=== PATIENT | female | born 1940 | race Two or more races ===

== ENCOUNTER 2018-03-04 21:16 | Inpatient (IN) | payer SELFPAY ==
[~2018-03-04] VITALS: Ht 165.1 cm; Wt 80.0 kg
--- NOTE | 2018-03-04 21:39 | PHYS DOC ---
Adult General Chief Complaint Chief Complaint: ABDOMINAL PAIN HPI HPI Patient is a 77 year old female who presents with RUQ pain and vomiting Patient has known gallstones for 2 years. She noted onset of RUQ pain with vomiting this morning at 1AM. She's had multiple episodes of vomiting throughout the day greater than 10 episodes, no blood or fevers. Patient last ate last night soup with eggs and fish. She has solitary kidney since Review of Systems Review of Systems Constitutional: Denies fever or chills Eyes: Denies change in visual acuity, redness, or eye pain HENT: Denies nasal congestion or sore throat Respiratory: Denies cough or shortness of breath Cardiovascular: Denies chest pain or palpitations GI: RUQ abdominal pain, nausea, vomiting, no bloody stools or diarrhea : Denies dysuria or hematuria Musculoskeletal: Denies back pain or joint pain Integument: Denies rash or skin lesions Neurologic: Denies headache, focal weakness or sensory changes Endocrine: Denies polyuria or polydipsia All other systems were reviewed and found to be within normal limits, except as documented in this note. Current Medications Current Medications Current Medications Medications (Trade) Dose Ordered Sig/Elaine Start Time Stop Time Status Last Admin Dose Admin Fentanyl Citrate (Fentanyl 2ml Vial) 50 mcg 1X ONCE 03/04/18 23:55 03/04/18 23:56 DC 03/04/18 23:59 50 MCG Piperacillin Sod/ Tazobactam Sod 3.375 gm/Sodium Chloride 50 ml @ 100 mls/hr 1X ONCE 03/04/18 23:55 03/05/18 00:24 DC 03/04/18 23:58 100 MLS/HR Allergies Allergies Physical Exam Physical Exam Constitutional: Well developed, well nourished, no acute distress, non-toxic appearance. HENT: Normocephalic, atraumatic, bilateral external ears normal, oropharynx moist, no oral exudates, nose normal. Eyes: PERRLA, EOMI, conjunctiva normal, no discharge. Neck: Normal range of motion, no tenderness, supple, no stridor. Cardiovascular:Heart rate regular rhythm, no murmur Lungs & Thorax: Bilateral breath sounds clear to auscultation Abdomen: Bowel sounds decreased, RUQ tenderness with guarding, no masses, no pulsatile masses. Skin: Warm, dry, no erythema, no rash. Back: No tenderness, no CVA tenderness. Extremities: No tenderness, no cyanosis, no clubbing, ROM intact, no edema. Neurologic: Alert and oriented X 3, normal motor function, normal sensory function, no focal deficits noted. Psychologic: Affect normal, judgement normal, mood normal. Current Patient Data Vital Signs Vital Signs Date Time Temp Pulse Resp B/P (MAP) Pulse Ox O2 Delivery O2 Flow Rate FiO2 03/05/18 01:00 71 18 144/70 (94) 94 03/04/18 21:26 97.7 Room Air 97.7 Lab Values Laboratory Tests Test 03/04/18 21:20 03/04/18 21:43 03/04/18 22:12 Urine Collection Type Unknown Urine Color Yellow Urine Clarity Clear Urine pH 7.5 Urine Specific [place] 1.020 Urine Protein 100 mg/dL (NEG-TRACE) Urine Glucose (UA) Negative mg/dL (NEG) Urine Ketones (Stick) Negative mg/dL (NEG) Urine Blood Negative (NEG) Urine Nitrite Negative (NEG) Urine Bilirubin Negative (NEG) Urine Urobilinogen Dipstick 1.0 mg/dL (0.2 mg/dL) Urine Leukocyte Esterase Negative (NEG) Urine RBC 3-5 /HPF (0-2) Urine WBC 1-4 /HPF (0-4) Urine Squamous Epithelial Cells Few /LPF Urine Bacteria 0 /HPF (0-FEW) White Blood Count 14.9 x10^3/uL (4.0-11.0) H Red Blood Count 4.46 x10^6/uL (3.50-5.40) Hemoglobin 13.9 g/dL (12.0-15.5) Hematocrit 40.4 % (36.0-47.0) Mean Corpuscular Volume 91 fL (79-100) Mean Corpuscular Hemoglobin 31 pg (25-35) Mean Corpuscular Hemoglobin Concent 34 g/dL (31-37) Red Cell Distribution Width 13.7 % (11.5-14.5) Platelet Count 231 x10^3/uL (140-400) Neutrophils (%) (Auto) 91 % (31-73) H Lymphocytes (%) (Auto) 4 % (24-48) L Monocytes (%) (Auto) 5 % (0-9) Eosinophils (%) (Auto) 0 % (0-3) Basophils (%) (Auto) 0 % (0-3) Neutrophils # (Auto) 13.5 x10^3uL (1.8-7.7) H Lymphocytes # (Auto) 0.6 x10^3/uL (1.0-4.8) L Monocytes # (Auto) 0.7 x10^3/uL (0.0-1.1) Eosinophils # (Auto) 0.0 x10^3/uL (0.0-0.7) Basophils # (Auto) 0.0 x10^3/uL (0.0-0.2) Segmented Neutrophils % 91 % (35-66) H Band Neutrophils % 5 % (0-9) Lymphocytes % 2 % (24-48) L Monocytes % 2 % (0-10) Platelet Estimate Adequate (ADEQUATE) Sodium Level 137 mmol/L (136-145) Potassium Level 4.3 mmol/L (3.5-5.1) Chloride Level 98 mmol/L (98-107) Carbon Dioxide Level 30 mmol/L (21-32) Anion Gap 9 (6-14) Blood Urea Nitrogen 17 mg/dL (7-20) Creatinine 1.1 mg/dL (0.6-1.0) H Estimated GFR (Cockcroft-Gault) 48.4 BUN/Creatinine Ratio 15 (6-20) Glucose Level 171 mg/dL (70-99) H Calcium Level 9.5 mg/dL (8.5-10.1) Total Bilirubin 1.1 mg/dL (0.2-1.0) H Aspartate Amino Transferase (AST) 23 U/L (15-37) Alanine Aminotransferase (ALT) 21 U/L (14-59) Alkaline Phosphatase 108 U/L (46-116) Troponin I Quantitative < 0.017 ng/mL (0.000-0.055) Total Protein 8.8 g/dL (6.4-8.2) H Albumin 3.6 g/dL (3.4-5.0) Albumin/Globulin Ratio 0.7 (1.0-1.7) L Lipase 157 U/L (73-393) Lactic Acid Level 2.4 mmol/L (0.4-2.0) H Laboratory Tests 03/04/18 21:43 Laboratory Tests 03/04/18 21:43 EKG EKG ECG 22:00 SB @ [address]-T wave changes Radiology/Procedures Radiology/Procedures [facility] [address] [place] [address] IMAGING REPORT Signed PATIENT: GLENN DEJESUS ACCOUNT: [id number] : 1940 LOCATION: ER AGE: 77 SEX: F EXAM STATUS: REG ER ORD. PHYSICIAN: KETTY RIZVI MD REASON: RUQ pain PROCEDURE: ABDOMEN LTD Exam performed: Single view chest, single view abdomen KUB and Limited right upper quadrant ultrasound. HISTORY: Right upper quadrant abdominal pain. DATE OF SERVICE: 03/04/2018. COMPARISON: None. Single AP view chest findings: Cardiomegaly with mild Central vascular congestion. Atheromatous calcification of the aortic knob. Prominent interstitial markings lungs are normal. Chronic. There are perhaps airspace opacities in both lower lobes. No pleural effusion or pneumothorax seen. Bones are normal. IMPRESSION: Cardiomegaly with Central vascular congestion. Prominent interstitial markings and some airspace opacities are seen in both lungs, which are chronic, however correlate clinically to rule out possibility of low-grade interstitial edema versus infiltrates. End impression. Single view abdomen KUB findings: Nonspecific, nondistended bowel loops are seen. There is scattered air and stool throughout the colon. No abnormal calcification. Spondylotic changes. IMPRESSION: Scattered stool throughout the colon suggesting constipation. No additional abnormality seen. End impression. Limited right upper quadrant ultrasound findings: Liver is normal in size and echogenicity and measures 14.7 cm in length. Cholelithiasis with gallbladder sludge. There is pericholecystic fluid and positive sonographic Ly's sign. The common bile duct appears mildly dilated at 6.5 mm. Right kidney measures 9.7 x 4.5 x 4.3 cm. There is no hydronephrosis or nephrolithiasis. Suboptimal evaluation of the pancreas due to overlying bowel gas. The visualized IVC appears normal. No free fluid. IMPRESSION: Cholelithiasis with sonographic findings consistent with acute cholecystitis. Presence of mildly dilated common bile duct raises question for choledocholithiasis which is not seen on this exam. If further evaluation is warranted, ERCP or MRCP may be of additional benefit. Electronically signed by: Debra Zuleta MD (03/04/2018 11:27 PM) [facility] DICTATED and SIGNED BY: DEBRA ZULETA MD DATE: 03/04/18 232 [facility] [address] [place] [address] IMAGING REPORT Signed PATIENT: GLENN DEJESUS ACCOUNT: [id number] : 1940 LOCATION: ER AGE: 77 SEX: F EXAM STATUS: REG ER ORD. PHYSICIAN: KETTY RIZVI MD REASON: abdominal pain PROCEDURE: CHEST AP ONLY Exam performed: Single view chest, single view abdomen KUB and Limited right upper quadrant ultrasound. HISTORY: Right upper quadrant abdominal pain. DATE OF SERVICE: 03/04/2018. COMPARISON: None. Single AP view chest findings: Cardiomegaly with mild Central vascular congestion. Atheromatous calcification of the aortic knob. Prominent interstitial markings lungs are normal. Chronic. There are perhaps airspace opacities in both lower lobes. No pleural effusion or pneumothorax seen. Bones are normal. IMPRESSION: Cardiomegaly with Central vascular congestion. Prominent interstitial markings and some airspace opacities are seen in both lungs, which are chronic, however correlate clinically to rule out possibility of low-grade interstitial edema versus infiltrates. End impression. Single view abdomen KUB findings: Nonspecific, nondistended bowel loops are seen. There is scattered air and stool throughout the colon. No abnormal calcification. Spondylotic changes. IMPRESSION: Scattered stool throughout the colon suggesting constipation. No additional abnormality seen. End impression. Limited right upper quadrant ultrasound findings: Liver is normal in size and echogenicity and measures 14.7 cm in length. Cholelithiasis with gallbladder sludge. There is pericholecystic fluid and positive sonographic Ly's sign. The common bile duct appears mildly dilated at 6.5 mm. Right kidney measures 9.7 x 4.5 x 4.3 cm. There is no hydronephrosis or nephrolithiasis. Suboptimal evaluation of the pancreas due to overlying bowel gas. The visualized IVC appears normal. No free fluid. IMPRESSION: Cholelithiasis with sonographic findings consistent with acute cholecystitis. Presence of mildly dilated common bile duct raises question for choledocholithiasis which is not seen on this exam. If further evaluation is warranted, ERCP or MRCP may be of additional benefit. Electronically signed by: Debra Zuleta MD (03/04/2018 11:27 PM) [facility] DICTATED and SIGNED BY: DEBRA ZULETA MD DATE: 03/04/18 1714 Course & Med Decision Making Course & Med Decision Making Pertinent Labs and Imaging studies reviewed. (See chart for details) Emergency Department course Patient presents with RUQ pain and vomiting DDx- Biliary colic, Cholecystis, obstruction, pancreatitis The patient was stable in the ED. ECG and troponin shoed no evidence of ACS. Labs were remarkable for leukocytosis, GB ultrasound showed cholecystitis. Patient was given Zosyn IV. Lactate elevated. blood culture sent. Patient was given IV NS hydration. CXR showed cardiomegaly with pulmonary vascular congestion. KUB showed constipation. 00:[address] Genao who recommends admission to hospitalist. Patient admitted to hospitalist. 06:[address] Kowalski who agreed with admission. Dragon Disclaimer Dragon Disclaimer This electronic medical record was generated, in whole or in part, using a voice recognition dictation system. Departure Departure Impression: Primary Impression: Acute cholecystitis Disposition: ADMITTED INPATIENT Admitting Physician: Other (Shi Kowalski MD) Condition: STABLE Scripts Hydrocodone Bit/Acetaminophen (HYDROCODONE-APAP 5-325 ) 1 Each Tablet 1 TAB PO PRN Q4HRS PRN for MILD PAIN, #30 TAB 0 Refills Prov: SHAKIR BRASWELL [employer] 03/06/18 KETTY RIZVI MD Mar 04, 2018 21:39
[2018-03-04 21:47] LABS: BILIRUBIN,URINE NEGATIVE (NEG); CLARITY,URINE CLEAR; COLOR,URINE YELLOW; NITRITE,URINE NEGATIVE (NEG); PH,URINE 7.5; PROTEIN,URINE 100 mg/dL (NEG-TRACE)
[2018-03-04 21:55] LABS: BACTERIA,URINE 0 /HPF (0-FEW); SQUAMOUS EPITHELIAL CELL,UR FEW /LPF
[2018-03-04 21:58] LABS: BASO % 0 % (0-3); EOS % 0 % (0-3); HEMATOCRIT 40.4 % (36.0-47.0); HEMOGLOBIN 13.9 g/dL (12.0-15.5); LYMPH # 0.6 x10^3/uL (1.0-4.8); LYMPH % 4 % (24-48); MEAN CORPUSCULAR HEMOGLOBIN 31 pg (25-35); MEAN CORPUSCULAR HGB CONC 34 g/dL (31-37); MEAN CORPUSCULAR VOLUME 91 fL (79-100); MONO # 0.7 x10^3/uL (0.0-1.1); MONO % 5 % (0-9); NEUT # 13.5 x10^3uL (1.8-7.7); NEUT % 91 % (31-73); PLATELET COUNT 231 x10^3/uL (140-400); RED BLOOD COUNT 4.46 x10^6/uL (3.50-5.40); RED CELL DISTRIBUTION WIDTH 13.7 % (11.5-14.5); WHITE BLOOD COUNT 14.9 x10^3/uL (4.0-11.0)
[2018-03-04 22:08] LABS: CALCIUM 9.5 mg/dL (8.5-10.1); CREATININE 1.1 mg/dL (0.6-1.0); GFR 48.4; POTASSIUM 4.3 mmol/L (3.5-5.1)
[2018-03-04 22:14] LABS: ALBUMIN 3.6 g/dL (3.4-5.0); ALBUMIN/GLOBULIN RATIO 0.7 (1.0-1.7); TOTAL BILIRUBIN 1.1 mg/dL (0.2-1.0); TOTAL PROTEIN 8.8 g/dL (6.4-8.2)
[2018-03-04 22:15] LABS: % BANDS 5 % (0-9); % LYMPHS 2 % (24-48); % MONOS 2 % (0-10); % SEGS 91 % (35-66); PLT ESTIMATE ADEQUATE (ADEQUATE)
--- NOTE | 2018-03-04 23:31 | RAD ---
Exam performed: Single view chest, single view abdomen KUB and Limited right upper quadrant ultrasound. HISTORY: Right upper quadrant abdominal pain. DATE OF SERVICE: 03/04/2018. COMPARISON: None. Single AP view chest findings: Cardiomegaly with mild Central vascular congestion. Atheromatous calcification of the aortic knob. Prominent interstitial markings lungs are normal. Chronic. There are perhaps airspace opacities in both lower lobes. No pleural effusion or pneumothorax seen. Bones are normal. IMPRESSION: Cardiomegaly with Central vascular congestion. Prominent interstitial markings and some airspace opacities are seen in both lungs, which are chronic, however correlate clinically to rule out possibility of low-grade interstitial edema versus infiltrates. End impression. Single view abdomen KUB findings: Nonspecific, nondistended bowel loops are seen. There is scattered air and stool throughout the colon. No abnormal calcification. Spondylotic changes. IMPRESSION: Scattered stool throughout the colon suggesting constipation. No additional abnormality seen. End impression. Limited right upper quadrant ultrasound findings: Liver is normal in size and echogenicity and measures 14.7 cm in length. Cholelithiasis with gallbladder sludge. There is pericholecystic fluid and positive sonographic Ly's sign. The common bile duct appears mildly dilated at 6.5 mm. Right kidney measures 9.7 x 4.5 x 4.3 cm. There is no hydronephrosis or nephrolithiasis. Suboptimal evaluation of the pancreas due to overlying bowel gas. The visualized IVC appears normal. No free fluid. IMPRESSION: Cholelithiasis with sonographic findings consistent with acute cholecystitis. Presence of mildly dilated common bile duct raises question for choledocholithiasis which is not seen on this exam. If further evaluation is warranted, ERCP or MRCP may be of additional benefit. Electronically signed by: Debra Zuleta MD (03/04/2018 11:27 PM) [facility]
[2018-03-04] MEDS ORDERED: fentaNYL PF VIAL 100 MCG/2 ML VIAL IV ONE (23:55)
[2018-03-04] MEDS ORDERED: PIPERACILLIN/TAZOBACTAM 3.375 GM in IV NORMAL SALINE 50ML 50 ML IV ONE (23:55)
[2018-03-05] VITALS (13 sets, daily range): BP systolic 133–162; BP diastolic 69–78
[2018-03-05] MEDS: IV NORMAL SALINE 1000ML BAG 1,000 ML IV SCH ×6 (01:15→23:45)
[2018-03-05] MEDS ORDERED: FLUT1DIS IH (03:33)
[2018-03-05] MEDS ORDERED: RANI150T21 PO (03:33)
[2018-03-05] MEDS ORDERED: FLUT9.9S NS (03:33)
[2018-03-05] MEDS ORDERED: ASPI-612 PO (03:33)
[2018-03-05] MEDS ORDERED: LOSA50TA2 PO (03:33)
[2018-03-05] MEDS ORDERED: ACET325T9 PO (03:33)
[2018-03-05] MEDS ORDERED: CETI10TA22 PO (03:33)
[2018-03-05] MEDS ORDERED: PROAIR RESPICL90 MCG IH (03:33)
[2018-03-05] MEDS ORDERED: MELO7.5T5 PO (03:33)
[2018-03-05] MEDS ORDERED: MORPHINE SULFATE 4 MG/ML VIAL. IV PRN (03:45)
[2018-03-05] MEDS: MORPHINE SULFATE 2 MG/ML VIAL. IV PRN ×2 (03:58→07:11)
[2018-03-05] MEDS ORDERED: INFLUENZA VAX SCREEN BY RX. MC PRN (04:00)
--- NOTE | 2018-03-05 06:18 | EKG ---
[facility] [address] [place] [address] Test Date: 2018-03-04 Test Time: 21:53:17 Pat Name: GLENN DEJESUS Department: Room: 400 1 Gender: F [employer]: : 1940 Requested By: KETTY RIZVI Order Number: [id number] Reading MD: Mike Nguyen Measurements Intervals [place] Rate: 57 P: 38 MS: 148 QRS: -16 QRSD: 92 T: 5 QT: 402 QTc: 394 Interpretive Statements SINUS RHYTHM LEFTWARD AXIS QRS(T) CONTOUR ABNORMALITY CONSIDER ANTEROSEPTAL MYOCARDIAL DAMAGE NONSPECIFIC ST-T WAVE CHANGES. POSSIBLY ABNORMAL ECG RI6.01 No previous ECG available for comparison Electronically Signed On 03-05-2018 15:28:23 CDT by Mike Nguyen
[2018-03-05] MEDS: ONDANSETRON PF 4 MG/2 ML VIAL. IV PRN (07:10)
[2018-03-05] MEDS ORDERED: HEPARIN 1,000 UNIT in IV NORMAL SALINE 1,000 ML for SURG PERIOP IRR ONE (09:00)
[2018-03-05] MEDS ORDERED: BUPIVACAINE-EPI 0.5%-1:200000 50 ML VIAL. ONE (09:15)
[2018-03-05] MEDS ORDERED: SURGICEL HEMOSTAT 2X3 EACH. ONE (09:16)
[2018-03-05] MEDS ORDERED: BISACODYL 10 MG SUPP.RECT. ONE (09:16)
[2018-03-05] MEDS ORDERED: IOHEXOL 300 MG/ML 100ML VIAL. ONE (09:16)
[2018-03-05] MEDS ORDERED: HYDROmorphone 2 MG/ML VIAL IV PRN (10:15)
[2018-03-05] MEDS ORDERED: ONDANSETRON PF 4 MG/2 ML VIAL. IV PRN ×2 (10:15→12:30)
[2018-03-05] MEDS ORDERED: IV RINGERS,LACTATED 1000ML 1,000 ML IV SCH (10:15)
[2018-03-05] MEDS ORDERED: LIDOCAINE 1% PF 2 ML VIAL. ID PRN (10:15)
[2018-03-05] MEDS ORDERED: PROCHLORPERAZINE 10 MG/2 ML VIAL. IV PRN (10:15)
[2018-03-05] MEDS ORDERED: fentaNYL PF VIAL 100 MCG/2 ML VIAL IV PRN ×2 (10:15)
[2018-03-05] MEDS ORDERED: MORPHINE SULFATE 2 MG/ML VIAL. IV PRN (10:15)
[2018-03-05] MEDS ORDERED: fentaNYL PF VIAL 100 MCG/2 ML VIAL ONE ×2 (10:21→10:32)
--- NOTE | 2018-03-05 10:24 | PDOC2 ---
CONSULT Date of Consult Date of Consult DATE: 03/05/18 TIME: 10:17 Reason for Consult Reason for Consult: Calculous cholecystitis Referring Physician Referring Physician: Kwasi Identification/Chief Complaint Chief Complaint RUQ pain Source Source: Caregiver, Chart review, Patient History of Present Illness Reason for Visit: 77 yo F with c/o RUQ and N/V. Pain began early this AM and worsened. N/V. Took ibuprofen for pain without effect. Known history of gallstones for 2 years. Past Medical History Past Medical History congenital absence left kidney Cardiovascular: HTN Pulmonary: Asthma Past Surgical History Past Surgical History: Other (unknown previous vaginal surgery) Family History Family History: No Significant Social History No ALCOHOL: none Lives: with Family Current Problem List Problem List Problems Medical Problems: (1) Acute cholecystitis Status: Acute Current Medications Current Medications Current Medications Piperacillin Sod/ Tazobactam Sod 3.375 gm/Sodium Chloride 50 ml @ 100 mls/hr 1X ONCE IV Last administered on 03/04/18at 23:58; Start 03/04/18 at 23:55; Stop 03/05/18 at 00:24; Status DC Fentanyl Citrate (Fentanyl 2ml Vial) 50 mcg 1X ONCE IV Last administered on at 23:59; Start 03/04/18 at 23:55; Stop 03/04/18 at 23:56; Status DC Sodium Chloride 1,000 ml @ 2,370 mls/hr Q26M IV Last administered on at 01:15; Start 03/05/18 at 01:15; Stop 03/05/18 at 02:15; Status DC Influenza Virus Vaccine (Afluria Trivalent [id number] Syringe) 0.5 ml ONCE ONCE VAX IM ; Start 03/05/18 at 09:00; Stop 03/05/18 at 09:01; Status DC Morphine Sulfate (Morphine Sulfate) 4 mg PRN Q2HR PRN IV PAIN; Start 03/05/18 at 03:45 Morphine Sulfate (Morphine Sulfate) 2 mg PRN Q2HR PRN IV PAIN Last administered on 03/05/18at 07:11; Start 03/05/18 at 03:45 Ondansetron HCl (Zofran) 4 mg PRN Q4HRS PRN IV NAUSEA/VOMITING Last administered on 03/05/18at 07:10; Start 03/05/18 at 03:45 Sodium Chloride 1,000 ml @ 100 mls/hr Q10H IV Last administered on 03/05/18at 03:59; Start 03/05/18 at 03:45 Info (FLU VACCINE SCREEN per RX) 1 each PRN 1X PRN MC SEE COMMENTS; Start 03/05 at 04:00; Status Cancel Heparin Sodium (Porcine) 1000 unit/Sodium Chloride 1,001 ml @ 1,001 mls/hr 1X ONCE IRR ; Start 03/05/18 at 09:00; Stop 03/05/18 at 09:59; Status DC Ondansetron HCl (Zofran) 4 mg PRN Q6HRS PRN IV NAUSEA/VOMITING; Start 03/05/18 at 10:15; Stop 03/06/18 at 10:14 Fentanyl Citrate (Fentanyl 2ml Vial) 25 mcg PRN Q5MIN PRN IV MILD PAIN; Start 03/05/18 at 10:15; Stop 03/06/18 at 10:14 Fentanyl Citrate (Fentanyl 2ml Vial) 50 mcg PRN Q5MIN PRN IV MODERATE TO SEVERE PAIN; Start 03/05/18 at 10:15; Stop 03/06/18 at 10:14 Morphine Sulfate (Morphine Sulfate) 1 mg PRN Q10MIN PRN IV SEVERE PAIN; Start 03/05/18 at 10:15; Stop 03/06/18 at 10:14 Ringer's Solution 1,000 ml @ 30 mls/hr Q24H IV ; Start 03/05/18 at 10:15; Stop 03/05/18 at 22:14 Lidocaine HCl (Xylocaine-Mpf 1% 2ml Vial) 2 ml 1X PRN PRN ID IV START; Start at 10:15; Stop 03/06/18 at 10:14 Hydromorphone HCl (Dilaudid) 0.5 mg PRN Q10MIN PRN IV SEV PAIN, Second choice; Start 03/05/18 at 10:15; Stop 03/06/18 at 10:14 Prochlorperazine Edisylate (Compazine) 5 mg PACU PRN PRN IV NAUSEA, MRX1; Start 03/05/18 at 10:15; Stop 03/06/18 at 10:14 Bupivacaine HCl/ Epinephrine Bitart (Marcaine-Epi 0.5%-1:[id number]) 50 ml STK-MED ONCE .ROUTE ; Start 03/05/18 at 09:15; Stop 03/05/18 at 10:17; Status DC Cellulose (Surgicel Hemostat 2x3) 1 each STK-MED ONCE .ROUTE ; Start 03/05/18 at 09:16; Stop 03/05/18 at 10:17; Status DC Cefazolin Sodium/ Dextrose 50 ml @ As Directed STK-MED ONCE IV ; Start 03/05/18 at 10:16; Stop 03/05/18 at 10:17; Status DC Iohexol (Omnipaque 300 Mg/ml) 100 ml STK-MED ONCE .ROUTE ; Start 03/05/18 at 09: 16; Stop 03/05/18 at 10:17; Status DC Bisacodyl (Dulcolax Supp) 10 mg STK-MED ONCE .ROUTE ; Start 03/05/18 at 09:16; Stop 03/05/18 at 10:17; Status DC Active Scripts Active Reported Zantac (Ranitidine Hcl) 150 Mg Tablet 1 Tab PO BID Mobic (Meloxicam) 7.5 Mg Tablet 1 Tab PO DAILY Cozaar (Losartan Potassium) 50 Mg Tablet 50 Mg PO DAILY Advair 100-50 Diskus (Fluticasone/Salmeterol) 1 Each Disk.w.dev 1 Puff IH BID Flonase Allergy Relief (Fluticasone Propionate) 9.9 Ml Marcus.susp 2 Sprays NS DAILY Zyrtec (Cetirizine Hcl) 10 Mg Tablet 1 Tab PO DAILY Aspirin Ec (Aspirin) 81 Mg Tablet.dr 1 Tab PO DAILY Proair Respiclick (Albuterol Sulfate) 90 Mcg Aer.pow.ba 2 Puff IH PRN Q6HRS PRN Tylenol (Acetaminophen) 325 Mg Tablet 500 Mg PO PRN Q6HRS PRN Allergies Allergies: Coded Allergies: hydrochlorothiazide (Verified Allergy, Unknown, 03/04/18) lisinopril (Verified Allergy, Unknown, 03/04/18) sulfamethoxazole (Verified Allergy, Unknown, 03/04/18) trimethoprim (Verified Allergy, Unknown, 03/04/18) ROS Gastrointestinal: Yes Nausea, Yes Vomiting, Yes Abdominal Pain Physical Exam General: Alert, Oriented X3, Cooperative, mild distress HEENT: Atraumatic Lungs: Normal air movement Abdomen: Soft, Other (TTP RUQ) Extremities: No clubbing, No cyanosis Skin: No rashes, No breakdown Neuro: Normal speech, Sensation intact Psych/Mental Status: Mental status NL, Mood NL Vitals VITALS Vital Signs Date Time Temp Pulse Resp B/P (MAP) Pulse Ox O2 Delivery O2 Flow Rate FiO2 03/05/18 07:45 96 Nasal Cannula 2.0 03/05/18 07:00 99.7 63 18 142/72 (95) 99.7 Labs Labs Laboratory Tests Test 03/04/18 21:20 03/04/18 21:43 03/04/18 22:12 03/05/18 04:40 Urine Collection Type Unknown Urine Color Yellow Urine Clarity Clear Urine pH 7.5 Urine Specific [place] 1.020 Urine Protein 100 mg/dL (NEG-TRACE) Urine Glucose (UA) Negative mg/dL (NEG) Urine Ketones (Stick) Negative mg/dL (NEG) Urine Blood Negative (NEG) Urine Nitrite Negative (NEG) Urine Bilirubin Negative (NEG) Urine Urobilinogen Dipstick 1.0 mg/dL (0.2 mg/dL) Urine Leukocyte Esterase Negative (NEG) Urine RBC 3-5 /HPF (0-2) Urine WBC 1-4 /HPF (0-4) Urine Squamous Epithelial Cells Few /LPF Urine Bacteria 0 /HPF (0-FEW) White Blood Count 14.9 x10^3/uL (4.0-11.0) Red Blood Count 4.46 x10^6/uL (3.50-5.40) Hemoglobin 13.9 g/dL (12.0-15.5) Hematocrit 40.4 % (36.0-47.0) Mean Corpuscular Volume 91 fL (79-100) Mean Corpuscular Hemoglobin 31 pg (25-35) Mean Corpuscular Hemoglobin Concent 34 g/dL (31-37) Red Cell Distribution Width 13.7 % (11.5-14.5) Platelet Count 231 x10^3/uL (140-400) Neutrophils (%) (Auto) 91 % (31-73) Lymphocytes (%) (Auto) 4 % (24-48) Monocytes (%) (Auto) 5 % (0-9) Eosinophils (%) (Auto) 0 % (0-3) Basophils (%) (Auto) 0 % (0-3) Neutrophils # (Auto) 13.5 x10^3uL (1.8-7.7) Lymphocytes # (Auto) 0.6 x10^3/uL (1.0-4.8) Monocytes # (Auto) 0.7 x10^3/uL (0.0-1.1) Eosinophils # (Auto) 0.0 x10^3/uL (0.0-0.7) Basophils # (Auto) 0.0 x10^3/uL (0.0-0.2) Segmented Neutrophils % 91 % (35-66) Band Neutrophils % 5 % (0-9) Lymphocytes % 2 % (24-48) Monocytes % 2 % (0-10) Platelet Estimate Adequate (ADEQUATE) Sodium Level 137 mmol/L (136-145) Potassium Level 4.3 mmol/L (3.5-5.1) Chloride Level 98 mmol/L (98-107) Carbon Dioxide Level 30 mmol/L (21-32) Anion Gap 9 (6-14) Blood Urea Nitrogen 17 mg/dL (7-20) Creatinine 1.1 mg/dL (0.6-1.0) Estimated GFR (Cockcroft-Gault) 48.4 BUN/Creatinine Ratio 15 (6-20) Glucose Level 171 mg/dL (70-99) Calcium Level 9.5 mg/dL (8.5-10.1) Total Bilirubin 1.1 mg/dL (0.2-1.0) Aspartate Amino Transf (AST/SGOT) 23 U/L (15-37) Alanine Aminotransferase (ALT/SGPT) 21 U/L (14-59) Alkaline Phosphatase 108 U/L (46-116) Troponin I Quantitative < 0.017 ng/mL (0.000-0.055) Total Protein 8.8 g/dL (6.4-8.2) Albumin 3.6 g/dL (3.4-5.0) Albumin/Globulin Ratio 0.7 (1.0-1.7) Lipase 157 U/L (73-393) Lactic Acid Level 2.4 mmol/L (0.4-2.0) 1.7 mmol/L (0.4-2.0) Laboratory Tests Test 03/04/18 21:20 03/04/18 21:43 03/04/18 22:12 03/05/18 04:40 Urine Collection Type Unknown Urine Color Yellow Urine Clarity Clear Urine pH 7.5 Urine Specific [place] 1.020 Urine Protein 100 mg/dL (NEG-TRACE) Urine Glucose (UA) Negative mg/dL (NEG) Urine Ketones (Stick) Negative mg/dL (NEG) Urine Blood Negative (NEG) Urine Nitrite Negative (NEG) Urine Bilirubin Negative (NEG) Urine Urobilinogen Dipstick 1.0 mg/dL (0.2 mg/dL) Urine Leukocyte Esterase Negative (NEG) Urine RBC 3-5 /HPF (0-2) Urine WBC 1-4 /HPF (0-4) Urine Squamous Epithelial Cells Few /LPF Urine Bacteria 0 /HPF (0-FEW) White Blood Count 14.9 x10^3/uL (4.0-11.0) Red Blood Count 4.46 x10^6/uL (3.50-5.40) Hemoglobin 13.9 g/dL (12.0-15.5) Hematocrit 40.4 % (36.0-47.0) Mean Corpuscular Volume 91 fL (79-100) Mean Corpuscular Hemoglobin 31 pg (25-35) Mean Corpuscular Hemoglobin Concent 34 g/dL (31-37) Red Cell Distribution Width 13.7 % (11.5-14.5) Platelet Count 231 x10^3/uL (140-400) Neutrophils (%) (Auto) 91 % (31-73) Lymphocytes (%) (Auto) 4 % (24-48) Monocytes (%) (Auto) 5 % (0-9) Eosinophils (%) (Auto) 0 % (0-3) Basophils (%) (Auto) 0 % (0-3) Neutrophils # (Auto) 13.5 x10^3uL (1.8-7.7) Lymphocytes # (Auto) 0.6 x10^3/uL (1.0-4.8) Monocytes # (Auto) 0.7 x10^3/uL (0.0-1.1) Eosinophils # (Auto) 0.0 x10^3/uL (0.0-0.7) Basophils # (Auto) 0.0 x10^3/uL (0.0-0.2) Segmented Neutrophils % 91 % (35-66) Band Neutrophils % 5 % (0-9) Lymphocytes % 2 % (24-48) Monocytes % 2 % (0-10) Platelet Estimate Adequate (ADEQUATE) Sodium Level 137 mmol/L (136-145) Potassium Level 4.3 mmol/L (3.5-5.1) Chloride Level 98 mmol/L (98-107) Carbon Dioxide Level 30 mmol/L (21-32) Anion Gap 9 (6-14) Blood Urea Nitrogen 17 mg/dL (7-20) Creatinine 1.1 mg/dL (0.6-1.0) Estimated GFR (Cockcroft-Gault) 48.4 BUN/Creatinine Ratio 15 (6-20) Glucose Level 171 mg/dL (70-99) Calcium Level 9.5 mg/dL (8.5-10.1) Total Bilirubin 1.1 mg/dL (0.2-1.0) Aspartate Amino Transf (AST/SGOT) 23 U/L (15-37) Alanine Aminotransferase (ALT/SGPT) 21 U/L (14-59) Alkaline Phosphatase 108 U/L (46-116) Troponin I Quantitative < 0.017 ng/mL (0.000-0.055) Total Protein 8.8 g/dL (6.4-8.2) Albumin 3.6 g/dL (3.4-5.0) Albumin/Globulin Ratio 0.7 (1.0-1.7) Lipase 157 U/L (73-393) Lactic Acid Level 2.4 mmol/L (0.4-2.0) 1.7 mmol/L (0.4-2.0) Images Images US c/w calculous cholecystitis Assessment/Plan Assessment/Plan Calculous cholecystitis TO OR for laparoscopic versus open cholecystectomy with cholangiogram R/R/B/A d/w pt and pt's supportive family. Risks, including, but not limited to : bleeding, infection, damage to surrounding structures, risk of anesthesia, risk of open. They appear to understand, their questions are answered and they elect to proceed. Thanks for consult! CLARISA SALGADO MD Mar 05, 2018 10:24
[2018-03-05] MEDS ORDERED: fentaNYL PF VIAL 100 MCG/2 ML VIAL IV ONE (10:30)
[2018-03-05] MEDS ORDERED: ROCURONIUM 50 MG/5 ML VIAL. ONE (10:32)
--- NOTE | 2018-03-05 12:05 | RAD ---
OPERATIVE CHOLANGIOGRAM: History: Laparoscopic cholecystectomy Procedure: A total of 2 fluoroscopic images were obtained of the right upper quadrant. Cystic duct was cannulated by the surgeon. Total fluoroscopic time was 17.5 seconds. Findings: There is opacification of the intrahepatic and extrahepatic biliary ducts. No filling defect to suggest choledocholithiasis is identified. Contrast material is able to transit to the duodenal sweep. Impression: No evidence of choledocholithiasis. Electronically signed by: Emir Banegas MD (03/05/2018 12:01 PM) [place] [id number]
[2018-03-05] MEDS ORDERED: ONDANSETRON PF 4 MG/2 ML VIAL. ONE (12:06)
[2018-03-05] MEDS ORDERED: NEOSTIGMINE METHYLSULFATE 5 MG/5 ML SYRINGE. ONE (12:06)
[2018-03-05] MEDS ORDERED: GLYCOPYRROLATE 1 MG/5 ML VIAL. ONE (12:06)
[2018-03-05] MEDS ORDERED: PROPOFOL 20 ML IV ONE (12:06)
[2018-03-05] MEDS ORDERED: DEXAMETHASONE SOD PHOS 20 MG/5 ML VIAL. ONE (12:07)
[2018-03-05] MEDS ORDERED: SEVOFLURANE 61 TO 120 MINUTES. IH ONE (12:07)
[2018-03-05] MEDS: IV RINGERS,LACTATED 1000ML 1,000 ML IV SCH ×2 (12:19→21:10)
[2018-03-05] MEDS ORDERED: 0.9 % SODIUM CHLORIDE 10 ML DISP.SYRIN. IV PRN (12:30)
[2018-03-05] MEDS ORDERED: DEXTROSE 50% 25 GM / 50ML DISP.SYRIN. IV PRN (12:30)
[2018-03-05] MEDS ORDERED: KETOROLAC 15 MG/ML VIAL. IV PRN (12:30)
--- NOTE | 2018-03-05 12:34 | PDOC4 ---
OPERATIVE NOTE Date: Date: Mar 05, 2018 Pre-Op Diagnosis: Calculous cholecystitis Post-Op Diagnosis: same Procedure Performed: Laparoscopic cholecystectomy with cholangiogram Surgeon: Ravinder Salgado Anesthesia Type: GETA plus local Blood Loss: 50 Specimans Obtained: gallbladder Findings: Necrotic portions of distended gallbladder with large amount of thickened bile aspirated, normal cholangiogram, purulent material noted in gallbladder wall Complications: none Operative Note: After obtaining informed consent, patient was taken to OR, induced under GETA and prepped in the usual fashion. Well healed incision in lower abdominal wall. 5 mm port placed umbilical and RUQ, 12 port placed epigastric, all under laparoscopic guidance. Abdominal cavity explored and otherwise unremarkable, except for obesity. Gallbladder noted to have extensive inflammation. Omentum adherent and bluntly taken down. Gallbladder distended and necrotic portions of the wall. Dark thickened bile aspirated off. Critical view obtained. Cystic artery ligated, which was just off a prominent right hepatic artery, which was uninjured. Cholangiogram obtained via cystic duct which was normal. Cystic duct ligated with hemolok and regular clips. Gallbladder taken off fossa sharply using cautery, placed in bag, delivered and sent to pathology for evaluation. Copious irrigation. No evidence of bleeding or other pathology noted. 19 EDENILSON drain placed in RUQ and fossa, secured with 3 0 nylon. Ports removed without bleeding. Fascia repaired with 0 vicryl. Skin repaired with 4 0 monocryl. Dressing placed. All counts correct. No immediate complications. Wound class is dirty, level 4. Patient tolerated procedure well and sent to PACU in stable condition. CLARISA SALGADO MD Mar 05, 2018 12:34
[2018-03-05] MEDS ORDERED: ALBUTEROL SULFATE 2.5 MG/3 ML NEBU. ONE (12:40)
[2018-03-05] MEDS ORDERED: ALBUTEROL SULFATE 2.5 MG/3 ML NEBU. NEB PRN (13:00)
[2018-03-05] MEDS: ENOXAPARIN 40 MG/0.4 ML SYRINGE. SQ SCH (13:00)
[2018-03-05] MEDS: DOCUSATE SODIUM 100 MG CAPSULE. PO SCH ×2 (13:00→21:09)
[2018-03-05] MEDS: HYDROcodone/APAP 5/325MG 1 TAB TABLET PO PRN ×2 (14:04→21:09)
--- NOTE | 2018-03-05 15:20 | HP ---
ADMIT DATE: 03/05/2018 CHIEF COMPLAINT: Abdominal pain. HISTORY OF PRESENT ILLNESS: The patient is a pleasant 77-year-old female who presented with right upper quadrant pain. She has associated nausea and vomiting, it has been occurring for several days. While she was in the ER, we did ultrasound, which confirmed gallstones. She has now been taken emergently to the OR and underwent a laparoscopic cholecystectomy. She is being examined in the medical floor room, 400, postoperatively. PAST MEDICAL HISTORY: Hypertension. ALLERGIES: HYDROCHLOROTHIAZIDE, LISINOPRIL, SULFA. FAMILY HISTORY: Hypertension. SOCIAL HISTORY: She does not drink, smoke or take drugs. MEDICATIONS: Reviewed. Please refer to the MRAD. REVIEW OF SYSTEMS: GENERAL: No history of weight change, weakness or fevers. SKIN: No bruising, hair changes or rashes. EYES: No blurred, double or loss of vision. NOSE AND THROAT: No history of nosebleeds, hoarseness or sore throat. HEART: No history of palpitations, chest pain or shortness of breath on exertion. LUNGS: Denies cough, hemoptysis, wheezing or shortness of breath. GASTROINTESTINAL: She complains of postop pain. GENITOURINARY: No history of frequency, urgency, hesitancy or nocturia. NEUROLOGIC: Denies history of numbness, tingling, tremor or weakness. PSYCHIATRIC: No history of panic, anxiety or depression. ENDOCRINE: No history of heat or cold intolerance, polyuria or polydipsia. EXTREMITIES: Denies muscle weakness, joint pain, pain on walking or stiffness. PHYSICAL EXAMINATION: VITAL SIGNS: Temperature afebrile, pulse 90, respirations 18, blood pressure 161/78. GENERAL: She is alert, cooperative. Her daughter is present. HEART: Normal S1, S2. LUNGS: Clear. ABDOMEN: Soft and tender. There is a EDENILSON drain. Clean, dry and intact dressing. ENDOCRINE: No thyromegaly. LYMPHATICS: No cervical nodes. HEMATOPOIETIC: No bruising. LABORATORY DATA: White count 15. Electrolytes are normal. ASSESSMENT AND PLAN: Postoperative laparoscopic cholecystectomy. For now, we are doing wound care, IV fluids, p.r.n. narcotics., home meds, try to advance her diet. Hope to discharge tomorrow. ADI TARANGO DO DR: Seven JOB#: [id number] / [id number]
[2018-03-06 03:00] VITALS: BP 144/74
[2018-03-06 07:00] VITALS: BP 141/78
[2018-03-06] MEDS: DOCUSATE SODIUM 100 MG CAPSULE. PO SCH (08:35)
[2018-03-06] MEDS: IV RINGERS,LACTATED 1000ML 1,000 ML IV SCH (08:36)
[2018-03-06] MEDS: HYDROcodone/APAP 5/325MG 1 TAB TABLET PO PRN ×2 (08:37→15:19)
[2018-03-06] MEDS: ONDANSETRON PF 4 MG/2 ML VIAL. IV PRN (08:45)
[2018-03-06] MEDS ORDERED: PANTOPRAZOLE IV PUSH 40 MG VIAL. IVP PRN (09:00)
[2018-03-06] MEDS: IV NORMAL SALINE 1000ML BAG 1,000 ML IV SCH (09:45)
[2018-03-06 11:00] VITALS: BP 151/80
[2018-03-06] MEDS ORDERED: NON FORMULARY ITEM (Albuterol Sulfate (Proair Respiclick) 2 PUFF) IH PRN (11:15)
[2018-03-06 11:31] LABS: BASO % 0 % (0-3); EOS % 0 % (0-3); HEMATOCRIT 34.9 % (36.0-47.0); LYMPH # 0.8 x10^3/uL (1.0-4.8); LYMPH % 6 % (24-48); MEAN CORPUSCULAR HEMOGLOBIN 31 pg (25-35); MEAN CORPUSCULAR HGB CONC 34 g/dL (31-37); MEAN CORPUSCULAR VOLUME 91 fL (79-100); MONO # 0.4 x10^3/uL (0.0-1.1); MONO % 3 % (0-9); NEUT # 13.4 x10^3uL (1.8-7.7); NEUT % 91 % (31-73); PLATELET COUNT 189 x10^3/uL (140-400); RED BLOOD COUNT 3.82 x10^6/uL (3.50-5.40); RED CELL DISTRIBUTION WIDTH 13.8 % (11.5-14.5); WHITE BLOOD COUNT 14.7 x10^3/uL (4.0-11.0)
[2018-03-06] MEDS ORDERED: ALBUTEROL SULFATE 2.5 MG/3 ML NEBU. NEB PRN (11:45)
--- NOTE | 2018-03-06 11:50 | PDOC ---
PROGRESS NOTES Chief Complaint Chief Complaint Acute Cholecystectasia HTN History of Present Illness History of Present Illness Pt seen and examined, PO day 1 from LS cholecystomy Pt was pleasant and her daughter was at bedside pt reports tolerating eating her breakfast well Vitals Vitals Vital Signs Date Time Temp Pulse Resp B/P (MAP) Pulse Ox O2 Delivery O2 Flow Rate FiO2 03/06/18 11:00 98.8 69 16 151/80 (103) 95 Room Air 98.8 03/06/18 09:37 1.0 Physical Exam General: Alert, Oriented X3, Cooperative, mild distress Heart: Regular rate, Normal S1, Normal S2 Lungs: Clear Abdomen: Soft, Other (TTP RUQ) Extremities: No clubbing, No cyanosis Skin: No rashes, No breakdown Labs LABS Laboratory Tests Test 03/06/18 11:10 White Blood Count 14.7 x10^3/uL (4.0-11.0) Red Blood Count 3.82 x10^6/uL (3.50-5.40) Hemoglobin 12.0 g/dL (12.0-15.5) Hematocrit 34.9 % (36.0-47.0) Mean Corpuscular Volume 91 fL (79-100) Mean Corpuscular Hemoglobin 31 pg (25-35) Mean Corpuscular Hemoglobin Concent 34 g/dL (31-37) Red Cell Distribution Width 13.8 % (11.5-14.5) Platelet Count 189 x10^3/uL (140-400) Neutrophils (%) (Auto) 91 % (31-73) Lymphocytes (%) (Auto) 6 % (24-48) Monocytes (%) (Auto) 3 % (0-9) Eosinophils (%) (Auto) 0 % (0-3) Basophils (%) (Auto) 0 % (0-3) Neutrophils # (Auto) 13.4 x10^3uL (1.8-7.7) Lymphocytes # (Auto) 0.8 x10^3/uL (1.0-4.8) Monocytes # (Auto) 0.4 x10^3/uL (0.0-1.1) Eosinophils # (Auto) 0.0 x10^3/uL (0.0-0.7) Basophils # (Auto) 0.0 x10^3/uL (0.0-0.2) Review of Systems Review of Systems CO coughing w/ yellow sputum CO fatigue CO acid reflex Assessment and Plan Assessmemt and Plan Problems Medical Problems: (1) Acute cholecystitis Status: Acute Acute Cholecystectasia HTN Plan: PO antibiotic (augmentin) PRN narcotics omeprazole Discharge depending on CBC Comment Review of Relevant I have reviewed the following items gerry (where applicable) has been applied. Labs Laboratory Tests Test 03/04/18 21:20 03/04/18 21:43 03/04/18 22:12 03/05/18 04:40 Urine Collection Type Unknown Urine Color Yellow Urine Clarity Clear Urine pH 7.5 Urine Specific [place] 1.020 Urine Protein 100 mg/dL (NEG-TRACE) Urine Glucose (UA) Negative mg/dL (NEG) Urine Ketones (Stick) Negative mg/dL (NEG) Urine Blood Negative (NEG) Urine Nitrite Negative (NEG) Urine Bilirubin Negative (NEG) Urine Urobilinogen Dipstick 1.0 mg/dL (0.2 mg/dL) Urine Leukocyte Esterase Negative (NEG) Urine RBC 3-5 /HPF (0-2) Urine WBC 1-4 /HPF (0-4) Urine Squamous Epithelial Cells Few /LPF Urine Bacteria 0 /HPF (0-FEW) White Blood Count 14.9 x10^3/uL (4.0-11.0) Red Blood Count 4.46 x10^6/uL (3.50-5.40) Hemoglobin 13.9 g/dL (12.0-15.5) Hematocrit 40.4 % (36.0-47.0) Mean Corpuscular Volume 91 fL (79-100) Mean Corpuscular Hemoglobin 31 pg (25-35) Mean Corpuscular Hemoglobin Concent 34 g/dL (31-37) Red Cell Distribution Width 13.7 % (11.5-14.5) Platelet Count 231 x10^3/uL (140-400) Neutrophils (%) (Auto) 91 % (31-73) Lymphocytes (%) (Auto) 4 % (24-48) Monocytes (%) (Auto) 5 % (0-9) Eosinophils (%) (Auto) 0 % (0-3) Basophils (%) (Auto) 0 % (0-3) Neutrophils # (Auto) 13.5 x10^3uL (1.8-7.7) Lymphocytes # (Auto) 0.6 x10^3/uL (1.0-4.8) Monocytes # (Auto) 0.7 x10^3/uL (0.0-1.1) Eosinophils # (Auto) 0.0 x10^3/uL (0.0-0.7) Basophils # (Auto) 0.0 x10^3/uL (0.0-0.2) Segmented Neutrophils % 91 % (35-66) Band Neutrophils % 5 % (0-9) Lymphocytes % 2 % (24-48) Monocytes % 2 % (0-10) Platelet Estimate Adequate (ADEQUATE) Sodium Level 137 mmol/L (136-145) Potassium Level 4.3 mmol/L (3.5-5.1) Chloride Level 98 mmol/L (98-107) Carbon Dioxide Level 30 mmol/L (21-32) Anion Gap 9 (6-14) Blood Urea Nitrogen 17 mg/dL (7-20) Creatinine 1.1 mg/dL (0.6-1.0) Estimated GFR (Cockcroft-Gault) 48.4 BUN/Creatinine Ratio 15 (6-20) Glucose Level 171 mg/dL (70-99) Calcium Level 9.5 mg/dL (8.5-10.1) Total Bilirubin 1.1 mg/dL (0.2-1.0) Aspartate Amino Transf (AST/SGOT) 23 U/L (15-37) Alanine Aminotransferase (ALT/SGPT) 21 U/L (14-59) Alkaline Phosphatase 108 U/L (46-116) Troponin I Quantitative < 0.017 ng/mL (0.000-0.055) Total Protein 8.8 g/dL (6.4-8.2) Albumin 3.6 g/dL (3.4-5.0) Albumin/Globulin Ratio 0.7 (1.0-1.7) Lipase 157 U/L (73-393) Lactic Acid Level 2.4 mmol/L (0.4-2.0) 1.7 mmol/L (0.4-2.0) Test 03/06/18 11:10 White Blood Count 14.7 x10^3/uL (4.0-11.0) Red Blood Count 3.82 x10^6/uL (3.50-5.40) Hemoglobin 12.0 g/dL (12.0-15.5) Hematocrit 34.9 % (36.0-47.0) Mean Corpuscular Volume 91 fL (79-100) Mean Corpuscular Hemoglobin 31 pg (25-35) Mean Corpuscular Hemoglobin Concent 34 g/dL (31-37) Red Cell Distribution Width 13.8 % (11.5-14.5) Platelet Count 189 x10^3/uL (140-400) Neutrophils (%) (Auto) 91 % (31-73) Lymphocytes (%) (Auto) 6 % (24-48) Monocytes (%) (Auto) 3 % (0-9) Eosinophils (%) (Auto) 0 % (0-3) Basophils (%) (Auto) 0 % (0-3) Neutrophils # (Auto) 13.4 x10^3uL (1.8-7.7) Lymphocytes # (Auto) 0.8 x10^3/uL (1.0-4.8) Monocytes # (Auto) 0.4 x10^3/uL (0.0-1.1) Eosinophils # (Auto) 0.0 x10^3/uL (0.0-0.7) Basophils # (Auto) 0.0 x10^3/uL (0.0-0.2) Laboratory Tests Test 03/06/18 11:10 White Blood Count 14.7 x10^3/uL (4.0-11.0) Red Blood Count 3.82 x10^6/uL (3.50-5.40) Hemoglobin 12.0 g/dL (12.0-15.5) Hematocrit 34.9 % (36.0-47.0) Mean Corpuscular Volume 91 fL (79-100) Mean Corpuscular Hemoglobin 31 pg (25-35) Mean Corpuscular Hemoglobin Concent 34 g/dL (31-37) Red Cell Distribution Width 13.8 % (11.5-14.5) Platelet Count 189 x10^3/uL (140-400) Neutrophils (%) (Auto) 91 % (31-73) Lymphocytes (%) (Auto) 6 % (24-48) Monocytes (%) (Auto) 3 % (0-9) Eosinophils (%) (Auto) 0 % (0-3) Basophils (%) (Auto) 0 % (0-3) Neutrophils # (Auto) 13.4 x10^3uL (1.8-7.7) Lymphocytes # (Auto) 0.8 x10^3/uL (1.0-4.8) Monocytes # (Auto) 0.4 x10^3/uL (0.0-1.1) Eosinophils # (Auto) 0.0 x10^3/uL (0.0-0.7) Basophils # (Auto) 0.0 x10^3/uL (0.0-0.2) Microbiology 03/05/18 Blood Culture - Final, Complete Medications Current Medications Piperacillin Sod/ Tazobactam Sod 3.375 gm/Sodium Chloride 50 ml @ 100 mls/hr 1X ONCE IV Last administered on 03/04/18at 23:58; Start 03/04/18 at 23:55; Stop 03/05/18 at 00:24; Status DC Fentanyl Citrate (Fentanyl 2ml Vial) 50 mcg 1X ONCE IV Last administered on at 23:59; Start 03/04/18 at 23:55; Stop 03/04/18 at 23:56; Status DC Sodium Chloride 1,000 ml @ 2,370 mls/hr Q26M IV Last administered on at 01:15; Start 03/05/18 at 01:15; Stop 03/05/18 at 02:15; Status DC Influenza Virus Vaccine (Afluria Trivalent [id number] Syringe) 0.5 ml ONCE ONCE VAX IM ; Start 03/05/18 at 09:00; Stop 03/05/18 at 09:01; Status DC Morphine Sulfate (Morphine Sulfate) 4 mg PRN Q2HR PRN IV PAIN; Start 03/05/18 at 03:45 Morphine Sulfate (Morphine Sulfate) 2 mg PRN Q2HR PRN IV PAIN Last administered on 03/05/18at 07:11; Start 03/05/18 at 03:45 Ondansetron HCl (Zofran) 4 mg PRN Q4HRS PRN IV NAUSEA/VOMITING Last administered on 03/06/18at 08:45; Start 03/05/18 at 03:45 Sodium Chloride 1,000 ml @ 100 mls/hr Q10H IV Last administered on 03/05/18at 03:59; Start 03/05/18 at 03:45 Info (FLU VACCINE SCREEN per RX) 1 each PRN 1X PRN MC SEE COMMENTS; Start 03/05 at 04:00; Status Cancel Heparin Sodium (Porcine) 1000 unit/Sodium Chloride 1,001 ml @ 1,001 mls/hr 1X ONCE IRR Last administered on 03/05/18at 11:37; Start 03/05/18 at 09:00; Stop at 09:59; Status DC Ondansetron HCl (Zofran) 4 mg PRN Q6HRS PRN IV NAUSEA/VOMITING; Start 03/05/18 at 10:15; Stop 03/06/18 at 10:14; Status DC Fentanyl Citrate (Fentanyl 2ml Vial) 25 mcg PRN Q5MIN PRN IV MILD PAIN; Start 03/05/18 at 10:15; Stop 03/06/18 at 10:14; Status DC Fentanyl Citrate (Fentanyl 2ml Vial) 50 mcg PRN Q5MIN PRN IV MODERATE TO SEVERE PAIN; Start 03/05/18 at 10:15; Stop 03/06/18 at 10:14; Status DC Morphine Sulfate (Morphine Sulfate) 1 mg PRN Q10MIN PRN IV SEVERE PAIN; Start 03/05/18 at 10:15; Stop 03/06/18 at 10:14; Status DC Ringer's Solution 1,000 ml @ 30 mls/hr Q24H IV ; Start 03/05/18 at 10:15; Stop 03/05/18 at 22:14; Status DC Lidocaine HCl (Xylocaine-Mpf 1% 2ml Vial) 2 ml 1X PRN PRN ID IV START; Start at 10:15; Stop 03/06/18 at 10:14; Status DC Hydromorphone HCl (Dilaudid) 0.5 mg PRN Q10MIN PRN IV SEV PAIN, Second choice; Start 03/05/18 at 10:15; Stop 03/06/18 at 10:14; Status DC Prochlorperazine Edisylate (Compazine) 5 mg PACU PRN PRN IV NAUSEA, MRX1; Start 03/05/18 at 10:15; Stop 03/06/18 at 10:14; Status DC Bupivacaine HCl/ Epinephrine Bitart (Marcaine-Epi 0.5%-1:[id number]) 50 ml STK-MED ONCE .ROUTE Last administered on 03/05/18at 11:32; Start 03/05/18 at 09:15; Stop 03/05/18 at 10:17; Status DC Cellulose (Surgicel Hemostat 2x3) 1 each STK-MED ONCE .ROUTE ; Start 03/05/18 at 09:16; Stop 03/05/18 at 10:17; Status DC Cefazolin Sodium/ Dextrose 50 ml @ As Directed STK-MED ONCE IV ; Start 03/05/18 at 10:16; Stop 03/05/18 at 10:17; Status DC Iohexol (Omnipaque 300 Mg/ml) 100 ml STK-MED ONCE .ROUTE Last administered on at 11:36; Start 03/05/18 at 09:16; Stop 03/05/18 at 10:17; Status DC Bisacodyl (Dulcolax Supp) 10 mg STK-MED ONCE .ROUTE Last administered on at 11:36; Start 03/05/18 at 09:16; Stop 03/05/18 at 10:17; Status DC Fentanyl Citrate (Fentanyl 2ml Vial) 100 mcg STK-MED ONCE .ROUTE ; Start at 10:21; Stop 03/05/18 at 10:23; Status DC Fentanyl Citrate (Fentanyl 2ml Vial) 100 mcg 1X ONCE IV Last administered on at 10:31; Start 03/05/18 at 10:30; Stop 03/05/18 at 10:31; Status DC Rocuronium [place] (Zemuron) 50 mg STK-MED ONCE .ROUTE ; Start 03/05/18 at 10:32 ; Stop 03/05/18 at 10:33; Status DC Fentanyl Citrate (Fentanyl 2ml Vial) 100 mcg STK-MED ONCE .ROUTE ; Start at 10:32; Stop 03/05/18 at 10:33; Status DC Glycopyrrolate (Robinul) 1 mg STK-MED ONCE .ROUTE ; Start 03/05/18 at 12:06; Stop 03/05/18 at 12:07; Status DC Neostigmine Methylsulfate (Neostigmine Methylsulfate) 5 mg STK-MED ONCE .ROUTE ; Start 03/05/18 at 12:06; Stop 03/05/18 at 12:07; Status DC Propofol 20 ml @ As Directed STK-MED ONCE IV ; Start 03/05/18 at 12:06; Stop at 12:08; Status DC Ondansetron HCl (Zofran) 4 mg STK-MED ONCE .ROUTE ; Start 03/05/18 at 12:06; Stop 03/05/18 at 12:08; Status DC Dexamethasone Sodium Phosphate (Decadron) 20 mg STK-MED ONCE .ROUTE ; Start at 12:07; Stop 03/05/18 at 12:08; Status DC Sevoflurane (Ultane) 60 ml STK-MED ONCE IH ; Start 03/05/18 at 12:07; Stop 03/05 at 12:08; Status DC Enoxaparin Sodium (Lovenox 40mg Syringe) 40 mg Q24H SQ ; Start 03/05/18 at 13:00 Sodium Chloride (Normal Saline Flush) 3 ml QSHIFT PRN IV AFTER MEDS AND BLOOD DRAWS; Start 03/05/18 at 12:30 Ringer's Solution 1,000 ml @ 100 mls/hr Q10H IV Last administered on at 08:36; Start 03/05/18 at 12:19 Dextrose (Dextrose 50%-Water Syringe) 12.5 gm PRN Q15MIN PRN IV SEE COMMENTS; Start 03/05/18 at 12:30 Acetaminophen/ Hydrocodone Bitart (Lortab 5/325) 1 tab PRN Q4HRS PRN PO MILD PAIN Last administered on 03/06/18at 08:37; Start 03/05/18 at 12:30 Ketorolac Tromethamine (Toradol 15mg Vial) 15 mg PRN Q6HRS PRN IV MODERATE PAIN ; Start 03/05/18 at 12:30; Stop 03/10/18 at 12:29 Docusate Sodium (Colace) 100 mg BID PO Last administered on 03/06/18at 08:35; Start 03/05/18 at 13:00 Ondansetron HCl (Zofran) 4 mg PRN Q6HRS PRN IV NAUESA, 1ST CHOICE; Start at 12:30 Albuterol Sulfate (Ventolin Neb Soln) 2.5 mg STK-MED ONCE .ROUTE ; Start at 12:40; Stop 03/05/18 at 12:41; Status DC Albuterol Sulfate (Ventolin Neb Soln) 2.5 mg 1X PACU PRN NEB WHEEZING Last administered on 03/05/18at 12:50; Start 03/05/18 at 13:00; Stop 03/05/18 at 20:00 ; Status DC Pantoprazole Sodium (Protonix) 40 mg DAILYAC PO ; Start 03/07/18 at 07:30 Pantoprazole Sodium (PROTONIX VIAL for IV PUSH) 40 mg PRN DAILY PRN IVP acid reflux/IF PO NOT TOLERATE Last administered on 03/06/18at 10:14; Start 03/06/18 at 09:00 Aspirin (Ecotrin) 81 mg DAILY PO ; Start 03/06/18 at 12:00 Cetirizine HCl (ZyrTEC) 10 mg DAILY PO ; Start 03/06/18 at 12:00 Losartan Potassium (Cozaar) 50 mg DAILY PO ; Start 03/06/18 at 12:00 Non-Formulary Medication (Albuterol Sulfate (Proair Respiclick)) 2 puff PRN Q6HRS PRN IH SHORTNESS OF BREATH; Start 03/06/18 at 11:15; Status UNV Fluticasone Propionate (Flonase) 2 spray DAILY NS ; Start 03/06/18 at 12:00; Stop 03/06/18 at 12:00; Status DC Non-Formulary Medication (Fluticasone/ Salmeterol (Advair 100-50 Diskus)) 1 puff BID IH ; Start 03/06/18 at 21:00; Status UNV Meloxicam (Mobic) 7.5 mg DAILY PO ; Start 03/06/18 at 12:00 Famotidine (Pepcid) 20 mg DAILY PO ; Start 03/06/18 at 12:00 Albuterol Sulfate (Ventolin Neb Soln) 2.5 mg PRN Q6HRS PRN NEB SHORTNESS OF BREATH; Start 03/06/18 at 11:45; Status UNV Albuterol Sulfate (Ventolin Neb Soln) 2.5 mg RTQID NEB ; Start 03/06/18 at 12:00 ; Status UNV Budesonide (Pulmicort) 0.5 mg RTBID NEB ; Start 03/06/18 at 20:00; Status UNV Fluticasone Propionate (Flonase) 2 spray DAILY NS ; Start 03/07/18 at 09:00 Active Scripts Active Reported Zantac (Ranitidine Hcl) 150 Mg Tablet 1 Tab PO BID Mobic (Meloxicam) 7.5 Mg Tablet 1 Tab PO DAILY Cozaar (Losartan Potassium) 50 Mg Tablet 50 Mg PO DAILY Advair 100-50 Diskus (Fluticasone/Salmeterol) 1 Each Disk.w.dev 1 Puff IH BID Flonase Allergy Relief (Fluticasone Propionate) 9.9 Ml Ariel.susp 2 Sprays NS DAILY Zyrtec (Cetirizine Hcl) 10 Mg Tablet 1 Tab PO DAILY Aspirin Ec (Aspirin) 81 Mg Tablet.dr 1 Tab PO DAILY Proair Respiclick (Albuterol Sulfate) 90 Mcg Aer.pow.ba 2 Puff IH PRN Q6HRS PRN Tylenol (Acetaminophen) 325 Mg Tablet 500 Mg PO PRN Q6HRS PRN Vitals/I & O Vital Sign - Last 24 Hours 03/05/18 03/05/18 03/05/18 03/05/18 12:16 12:31 12:31 12:46 Temp 99.1 99.1 Pulse 96 95 91 Resp 14 16 18 B/P (MAP) 161/69 161/69 162/56 Pulse Ox 92 98 99 O2 Delivery Nasal Cannula Nasal Cannula Mask Aerosol Mask Aerosol Mask O2 Flow Rate 2 10 15 03/05/18 03/05/18 03/05/18 03/05/18 13:01 13:03 13:59 14:04 Temp 97.7 97.7 Pulse 81 69 Resp 24 B/P (MAP) 161/78 162/75 (104) Pulse Ox 97 95 97 O2 Delivery Nasal Cannula Nasal Cannula Nasal Cannula O2 Flow Rate 3 3 3.0 03/05/18 03/05/18 03/05/18 03/05/18 14:13 14:28 14:43 14:58 Pulse 65 67 66 68 B/P (MAP) 160/77 (104) 145/77 (99) 154/74 (100) 149/77 (101) Pulse Ox 96 96 97 95 03/05/18 03/05/18 03/05/18 03/05/18 15:00 15:10 15:28 15:58 Temp 97.9 97.9 Pulse 65 65 65 Resp 18 B/P (MAP) 145/77 (99) 156/73 (100) 147/75 (99) Pulse Ox 98 98 95 95 O2 Delivery Nasal Cannula O2 Flow Rate 2.0 03/05/18 03/05/18 03/05/18 03/05/18 16:58 19:00 20:00 20:30 Pulse 71 59 Resp 20 B/P (MAP) 152/78 (102) 141/69 (93) Pulse Ox 95 98 98 O2 Delivery Nasal Cannula Nasal Cannula Nasal Cannula O2 Flow Rate 1.5 3.0 1.5 03/05/18 03/05/18 03/05/18 03/06/18 21:09 22:10 23:00 03:00 Temp 99.3 99.0 99.3 99.0 Pulse 71 69 Resp 16 16 18 18 B/P (MAP) 133/69 (90) 144/74 (97) Pulse Ox 98 95 93 O2 Delivery Nasal Cannula Nasal Cannula Room Air O2 Flow Rate 2.0 1.5 03/06/18 03/06/18 03/06/18 03/06/18 07:00 08:37 09:37 11:00 Temp 99.3 98.8 99.3 98.8 Pulse 80 69 Resp 16 16 B/P (MAP) 141/78 (99) 151/80 (103) Pulse Ox 93 95 O2 Delivery Nasal Cannula Nasal Cannula Nasal Cannula Room Air O2 Flow Rate 1.0 1.0 1.0 Intake and Output 03/05/18 03/05/18 03/06/18 15:00 23:00 07:00 Intake Total 2990 ml 1095 ml 2890 ml Output Total 120 ml 100 ml Balance 2990 ml 975 ml 2790 ml ADI TARANGO III DO Mar 06, 2018 11:49
[2018-03-06] MEDS ORDERED: LOSARTAN POTASSIUM 50 MG TABLET. PO SCH (12:00)
[2018-03-06] MEDS ORDERED: MELOXICAM 7.5 MG TABLET PO SCH (12:00)
[2018-03-06] MEDS ORDERED: ALBUTEROL SULFATE 2.5 MG/3 ML NEBU. NEB SCH (12:00)
[2018-03-06] MEDS ORDERED: BUDESONIDE 0.5 MG/2 ML NEBU. NEB SCH (12:00)
[2018-03-06] MEDS ORDERED: ASPIRIN ENTERIC COATED 81 MG TABLET.DR. PO SCH (12:00)
[2018-03-06] MEDS ORDERED: CETIRIZINE HCL 10 MG TABLET. PO SCH (12:00)
[2018-03-06] MEDS ORDERED: FAMOTIDINE 20 MG TABLET. PO SCH (12:00)
[2018-03-06] MEDS ORDERED: FLUTICASONE 50MCG/NASAL SPRAY 16GM BOTTLE. NS SCH (12:00)
[2018-03-06] MEDS: ENOXAPARIN 40 MG/0.4 ML SYRINGE. SQ SCH (12:43)
[2018-03-06 12:47] VITALS: BP 151/80
[2018-03-06] MEDS ORDERED: HYDR-2758 PO (14:00)
--- NOTE | 2018-03-06 14:23 | PDOC ---
SURGICAL PROGRESS NOTE Subjective tolerating diet navarro managed ready for discharge home Vital Signs Vital Signs Date Time Temp Pulse Resp B/P (MAP) Pulse Ox O2 Delivery O2 Flow Rate FiO2 03/06/18 12:47 69 151/80 03/06/18 11:00 98.8 16 95 Room Air 98.8 03/06/18 09:37 1.0 I&O Intake and Output 03/06/18 07:00 Intake Total 6975 ml Output Total 220 ml Balance 6755 ml Intake Oral 730 ml IV Total 1770 ml Other 4475 ml Output Drainage Total 220 ml # Voids 11 General: Alert, Oriented X3, Cooperative, No acute distress Abdomen: Soft, Other (dressings dry) Labs Laboratory Tests Test 03/04/18 21:20 03/04/18 21:43 03/04/18 22:12 03/05/18 04:40 Urine Collection Type Unknown Urine Color Yellow Urine Clarity Clear Urine pH 7.5 Urine Specific [place] 1.020 Urine Protein 100 mg/dL (NEG-TRACE) Urine Glucose (UA) Negative mg/dL (NEG) Urine Ketones (Stick) Negative mg/dL (NEG) Urine Blood Negative (NEG) Urine Nitrite Negative (NEG) Urine Bilirubin Negative (NEG) Urine Urobilinogen Dipstick 1.0 mg/dL (0.2 mg/dL) Urine Leukocyte Esterase Negative (NEG) Urine RBC 3-5 /HPF (0-2) Urine WBC 1-4 /HPF (0-4) Urine Squamous Epithelial Cells Few /LPF Urine Bacteria 0 /HPF (0-FEW) White Blood Count 14.9 x10^3/uL (4.0-11.0) Red Blood Count 4.46 x10^6/uL (3.50-5.40) Hemoglobin 13.9 g/dL (12.0-15.5) Hematocrit 40.4 % (36.0-47.0) Mean Corpuscular Volume 91 fL (79-100) Mean Corpuscular Hemoglobin 31 pg (25-35) Mean Corpuscular Hemoglobin Concent 34 g/dL (31-37) Red Cell Distribution Width 13.7 % (11.5-14.5) Platelet Count 231 x10^3/uL (140-400) Neutrophils (%) (Auto) 91 % (31-73) Lymphocytes (%) (Auto) 4 % (24-48) Monocytes (%) (Auto) 5 % (0-9) Eosinophils (%) (Auto) 0 % (0-3) Basophils (%) (Auto) 0 % (0-3) Neutrophils # (Auto) 13.5 x10^3uL (1.8-7.7) Lymphocytes # (Auto) 0.6 x10^3/uL (1.0-4.8) Monocytes # (Auto) 0.7 x10^3/uL (0.0-1.1) Eosinophils # (Auto) 0.0 x10^3/uL (0.0-0.7) Basophils # (Auto) 0.0 x10^3/uL (0.0-0.2) Segmented Neutrophils % 91 % (35-66) Band Neutrophils % 5 % (0-9) Lymphocytes % 2 % (24-48) Monocytes % 2 % (0-10) Platelet Estimate Adequate (ADEQUATE) Sodium Level 137 mmol/L (136-145) Potassium Level 4.3 mmol/L (3.5-5.1) Chloride Level 98 mmol/L (98-107) Carbon Dioxide Level 30 mmol/L (21-32) Anion Gap 9 (6-14) Blood Urea Nitrogen 17 mg/dL (7-20) Creatinine 1.1 mg/dL (0.6-1.0) Estimated GFR (Cockcroft-Gault) 48.4 BUN/Creatinine Ratio 15 (6-20) Glucose Level 171 mg/dL (70-99) Calcium Level 9.5 mg/dL (8.5-10.1) Total Bilirubin 1.1 mg/dL (0.2-1.0) Aspartate Amino Transf (AST/SGOT) 23 U/L (15-37) Alanine Aminotransferase (ALT/SGPT) 21 U/L (14-59) Alkaline Phosphatase 108 U/L (46-116) Troponin I Quantitative < 0.017 ng/mL (0.000-0.055) Total Protein 8.8 g/dL (6.4-8.2) Albumin 3.6 g/dL (3.4-5.0) Albumin/Globulin Ratio 0.7 (1.0-1.7) Lipase 157 U/L (73-393) Lactic Acid Level 2.4 mmol/L (0.4-2.0) 1.7 mmol/L (0.4-2.0) Test 03/06/18 11:10 White Blood Count 14.7 x10^3/uL (4.0-11.0) Red Blood Count 3.82 x10^6/uL (3.50-5.40) Hemoglobin 12.0 g/dL (12.0-15.5) Hematocrit 34.9 % (36.0-47.0) Mean Corpuscular Volume 91 fL (79-100) Mean Corpuscular Hemoglobin 31 pg (25-35) Mean Corpuscular Hemoglobin Concent 34 g/dL (31-37) Red Cell Distribution Width 13.8 % (11.5-14.5) Platelet Count 189 x10^3/uL (140-400) Neutrophils (%) (Auto) 91 % (31-73) Lymphocytes (%) (Auto) 6 % (24-48) Monocytes (%) (Auto) 3 % (0-9) Eosinophils (%) (Auto) 0 % (0-3) Basophils (%) (Auto) 0 % (0-3) Neutrophils # (Auto) 13.4 x10^3uL (1.8-7.7) Lymphocytes # (Auto) 0.8 x10^3/uL (1.0-4.8) Monocytes # (Auto) 0.4 x10^3/uL (0.0-1.1) Eosinophils # (Auto) 0.0 x10^3/uL (0.0-0.7) Basophils # (Auto) 0.0 x10^3/uL (0.0-0.2) Laboratory Tests Test 03/06/18 11:10 White Blood Count 14.7 x10^3/uL (4.0-11.0) Red Blood Count 3.82 x10^6/uL (3.50-5.40) Hemoglobin 12.0 g/dL (12.0-15.5) Hematocrit 34.9 % (36.0-47.0) Mean Corpuscular Volume 91 fL (79-100) Mean Corpuscular Hemoglobin 31 pg (25-35) Mean Corpuscular Hemoglobin Concent 34 g/dL (31-37) Red Cell Distribution Width 13.8 % (11.5-14.5) Platelet Count 189 x10^3/uL (140-400) Neutrophils (%) (Auto) 91 % (31-73) Lymphocytes (%) (Auto) 6 % (24-48) Monocytes (%) (Auto) 3 % (0-9) Eosinophils (%) (Auto) 0 % (0-3) Basophils (%) (Auto) 0 % (0-3) Neutrophils # (Auto) 13.4 x10^3uL (1.8-7.7) Lymphocytes # (Auto) 0.8 x10^3/uL (1.0-4.8) Monocytes # (Auto) 0.4 x10^3/uL (0.0-1.1) Eosinophils # (Auto) 0.0 x10^3/uL (0.0-0.7) Basophils # (Auto) 0.0 x10^3/uL (0.0-0.2) Problem List Problems Medical Problems: (1) Acute cholecystitis Status: Acute Assessment/Plan s/p franco FU 2 weeks SHAKIR BRASWELL APRN Mar 06, 2018 14:23
[2018-03-06] MEDS ORDERED: NON FORMULARY ITEM (Fluticasone/Salmeterol (Advair 100-50 Diskus) 1 PUFF) IH SCH (21:00)
[2018-03-07] MEDS ORDERED: PANTOPRAZOLE 40 MG TABLET.DR. PO SCH (07:30)
[2018-03-07] MEDS ORDERED: FLUTICASONE 50MCG/NASAL SPRAY 16GM BOTTLE. NS SCH (09:00)
--- NOTE | 2018-03-07 16:09 | PATHOLOGY ---
[facility] Accession Number: [id number] . 01 Material submitted: . GALLBLADDER . 01 Clinical history: . Calculus cholecystitis . 02 Diagnosis: Gallbladder, laparoscopic cholecystectomy: - Cholelithiasis. - Acute necrotizing and hemorrhagic cholecystitis. . (JPM/at;03/07/2018) QTA/03/07/2018 . 02 Comment: There is no evidence of malignancy. . 02 Electronically signed: . Davian Moniuqe MD, Pathologist NPI- [id number] . 01 Gross description: . The specimen is received in formalin, labeled "Elisa Peña, gallbladder". Received is a previously opened gallbladder measuring 8.9 x 5.3 x 2.1 cm in greatest dimensions displaying shaggy oconnell-brown serosal surfaces. Opening the gallbladder reveals a velvety, light brown to smooth, green mucosa with adherent light brown friable material. The gallbladder wall measures 0.1 cm in thickness. Calculi are present displaying a light brown and multifaceted appearance, and no masses or lesions are noted grossly. Lap Welder sections, to include the proximal margin are submitted in cassette A1. (CAA; 03/06/2018) QAC/QAC . 02 Pathologist provided ICD-10: K80.00 . 02 CPT . 478471 Specimen Comment: A courtesy copy of this report has been sent to Specimen Comment: [phone], . Specimen Comment: Report sent to and Specimen Comment: A duplicate report has been generated due to demographic updates. Performed at: [address], [place], [place] [id number] MD Ryder Ledbetter MD Phone: [phone] Performed at: 02 [facility] [address], [place] [id number] MD Davian Monique MD Phone: [phone]
--- NOTE | 2018-03-10 11:34 | DS ---
DATE OF DISCHARGE: 03/06/2018 ADMISSION DIAGNOSIS: Cholecystitis. DISCHARGE DIAGNOSIS: Resolving cholecystitis. HOSPITAL COURSE: The patient is a pleasant 77-year-old female who presented with cholecystitis. She was admitted. We consulted GI and General Surgery. We gave her fluids and antiemetics and antibiotics. I believe she did go for surgery. Postoperatively, she did well with that. We discharged to home. DISPOSITION: Home. ACTIVITY: As tolerated. DIET: Low sodium. MEDICATIONS: Please see the MRAD. TOTAL TIME ON DISCHARGE: Thirty-one minutes. ADI TARANGO DO DR: SILVIA/yajaira JOB#: [id number] / [id number]
== END 2018-03-06 15:38 | disposition home or self-care (01) | DRG 418 ==
LOC: ER 21:16 → 4 NORTH 03-05 01:10
PROVIDERS: ADMIT Internal Medicine; ATTEND Internal Medicine
PROC: BF131ZZ Fluoroscopy of Gallbladder and Bile Ducts using Low Osmolar Contrast (ICD-10-PCS; 2018-03-05)
PROC: 0FT44ZZ Resection of Gallbladder, Percutaneous Endoscopic Approach (ICD-10-PCS; principal; 2018-03-05 10:45)
DX: K80.00 Calculus of gallbladder with acute cholecystitis without obstruction (principal); Q60.0 Renal agenesis, unilateral; I10 Essential (primary) hypertension; J45.909 Unspecified asthma, uncomplicated; K82.8 Other specified diseases of gallbladder; E66.9 Obesity, unspecified; Z68.29 Body mass index [BMI] 29.0-29.9, adult; Z88.8 Allergy status to other drugs, medicaments and biological substances; Z82.49 Family history of ischemic heart disease and other diseases of the circulatory system
CPT/HCPCS: 36415; 71045; 74018; 74300; 76705; 80053; 81001; 83605; 83690; 84484; 85007; 85025; 87040; 87205; 88304; 93005; 96365; 96366; C9113; J0690; J1100; J1644; J2270; J2405; J2543; J2704; J2710; J3010; J3490; J7030; J7120; J7613; Q9967; 99285-25